=== PATIENT | female | born 1955 | race Caucasian/White ===

== ENCOUNTER → 2019-09-07 | Outpatient (CLI) | payer BC ==
--- NOTE | 2019-09-07 12:42 | MRI ---
EXAM DESCRIPTION: Lumbar Spine w/o Contrast : Magnetic Resonance Imaging. CLINICAL HISTORY: SPONDYLOSIS WITH RADICULOPATHY LUMBAR REGION COMPARISON: Lumbar radiographs 19 August 2019. TECHNIQUE: Multiplanar, multiple standard sequences, non contrast MRI, lumbar spine. FINDINGS: L5-S1: The disc is well visualized on axial T2 series 501, image 3. Disc desiccation with disc space maintained. Tiny posterior midline bulge. Posterior elements unremarkable. AP canal diameter 12 mm. Bilateral mild foraminal narrowing, more on the left. L4-L5: Normal signal in the disc with disc space maintained and no bulging. Minimal hypertrophic arthrosis and posterior ligament thickening. AP canal diameter 12 mm. Bilateral foramina are patent. L3-L4: Minimal disc desiccation. With mid and posterior disc space maintained Mild anterior endplate reactive changes and disc bulging. No posterior bulge. Minimal ligament thickening and facet arthrosis on the left. AP canal diameter 12 mm. Bilateral foramina are patent. L2-L3: Minimal disc desiccation with anterior endplate reactive changes bulging disc and bony hypertrophy. Tiny posterior midline bulge. Minimal ligament thickening. AP canal diameter 12 mm. Bilateral foramina are patent. L1-L2: Normal signal in the disc with disc space maintained. Tiny posterior midline bulge. Mild canal narrowing. Conus terminates just above the disc space. Bilateral foramina patent. T12-L1: Normal signal in the disc with disc space maintained. Posterior elements unremarkable. Canal and foramina are patent. No significant scoliosis . Minimal decrease in lordosis. Paravertebral soft tissues negative.. Distal cord normal signal and caliber. Normal marrow signal in the remaining vertebral bodies and the posterior elements. Vertebral bodies are not compressed at any level. IMPRESSION: 1. Multiple levels of disc desiccation but no significant disc space loss. Anterior spondylosis at some levels. Multiple levels of posterior flavum ligament thickening with sporadic hypertrophic facet arthrosis. Mild to moderate canal narrowing at both levels. No foraminal stenosis at any level. No nerve root compromise. 2. Please see details for each level in the FINDINGS. Electronically signed by: Rupesh Jacobo MD 09/07/2019 12:41 PM [facility]
== END ==
LOC: MRI 08:35
PROVIDERS: ATTEND Family Medicine
DX: M47.26 Other spondylosis with radiculopathy, lumbar region (principal); M51.16 Intervertebral disc disorders with radiculopathy, lumbar region